=== PATIENT | male | born 2000 | race Hispanic/Latino ===

== ENCOUNTER 2022-06-23 23:13 | Emergency (ER) | payer BC ==
[2022-06-24] MEDS ORDERED: Lidocaine 1% w/Epinephrine 1:100K 20 ML VIAL ONE (00:34)
== END 2022-06-24 01:15 | disposition home or self-care (01) ==
LOC: ERS 23:13
DX: S41.132A Puncture wound without foreign body of left upper arm, initial encounter (principal); W34.00XA Accidental discharge from unspecified firearms or gun, initial encounter; Z23 Encounter for immunization
CPT/HCPCS: 71045